=== PATIENT | male | born 1985 | race Two or more races ===

== ENCOUNTER 2018-10-30 15:34 | Emergency (ER) | payer OTHER ==
[~2018-10-30] VITALS: Ht 185.4 cm; Wt 98.0 kg
[2018-10-30 15:51] VITALS: BP 113/71
== END 2018-10-30 16:31 | disposition home or self-care (01) ==
LOC: ER 15:36
DX: R25.2 Cramp and spasm (principal); M79.605 Pain in left leg; M79.604 Pain in right leg; M54.5 Low back pain; F20.9 Schizophrenia, unspecified; F17.210 Nicotine dependence, cigarettes, uncomplicated; Z88.1 Allergy status to other antibiotic agents
CPT/HCPCS: 99283; A4606; Z7610; Z7502